=== PATIENT | female | born 1960 | race Two or more races ===

== ENCOUNTER 2019-08-31 14:41 | Emergency (ER) | payer SELFPAY ==
[~2019-08-31] VITALS: Ht 147.3 cm; Wt 70.0 kg
--- NOTE | 2019-08-31 15:12 | PHYS DOC ---
General Adult EDM: Chief Complaint: DIZZY/LIGHT HEADED HPI: HPI: 59-year-old female presents with dizziness. Patient states that she has had dizziness for several weeks or even months. It is intermittent and worse when she lies down. She gets the feeling of rotation when she does this. She also has these episodes sometimes when she goes from sitting to standing. They can last for a couple of minutes. She has noticed that it is most frequent when she uses her reading glasses. They are a generic prescription level that she bought [id number]. She has not been evaluated by an professional poker player. She has been having more trouble since starting this new job this week. She has not been wearing her reading glasses today and has not had any episodes. She denies nausea, vomiting, fever, chills. She has no other complaints at this time. Review of Systems: Review of Systems: Constitutional: Denies fever or chills Eyes: Denies change in visual acuity HENT: Denies nasal congestion or sore throat Respiratory: Denies cough or shortness of breath Cardiovascular: Denies chest pain or edema GI: Denies abdominal pain, nausea, vomiting, bloody stools or diarrhea : Denies dysuria Musculoskeletal: Denies back pain or joint pain Integument: Denies rash Neurologic: Dizziness. Denies headache, focal weakness or sensory changes Endocrine: Denies polyuria or polydipsia Lymphatic: Denies swollen glands Psychiatric: Denies depression or anxiety Heart Score: Risk Factors: Risk Factors: DM, Current or recent (<one month) smoker, HTN, HLP, family history of CAD, obesity. Risk Scores: Score 0 - 3: 2.5% MACE over next 6 weeks - Discharge Home Score 4 - 6: 20.3% MACE over next 6 weeks - Admit for Clinical Observation Score 7 - 10: 72.7% MACE over next 6 weeks - Early Invasive Strategies Physical Exam: PE: Constitutional: Well developed, well nourished, no acute distress, non-toxic appearance. [] HENT: Normocephalic, atraumatic, bilateral external ears normal, oropharynx moist, no oral exudates, nose normal. [] Eyes: PERRLA, EOMI, conjunctiva normal, no discharge. [] Neck: Normal range of motion, no tenderness, supple, no stridor. [] Cardiovascular:Heart rate regular rhythm, no murmur [] Lungs & Thorax: Bilateral breath sounds clear to auscultation [] Abdomen: Bowel sounds normal, soft, no tenderness, no masses, no pulsatile masses. [] Skin: Warm, dry, no erythema, no rash. [] Back: No tenderness, no CVA tenderness. [] Extremities: No tenderness, no cyanosis, no clubbing, ROM intact, no edema. [] Neurologic: Alert and oriented X 3, normal motor function, normal sensory function, no focal deficits noted. [] Psychologic: Affect normal, judgement normal, mood normal. [] EKG: EKG: Sinus rhythm, rate 69, leftward axis, no ST elevations or depressions. [] Radiology/Procedures: Radiology/Procedures: [] Impressions: CT HEAD WO CONTRAST History:Dizziness Comparison: None. Technique: Noncontrast CT imaging was performed of the head. Exposure: One or more of the following individualized dose reduction techniques were utilized for this examination: 1. Automated exposure control 2. Adjustment of the mA and/or kV according to patient size 3. Use of iterative reconstruction technique. Findings: No acute extra-axial or parenchymal hemorrhage is identified. There is no significant intra-axial mass effect, midline shift, or extra-axial fluid collection. The santo-white differentiation of the major vascular territories is preserved. The ventricles, sulci, and cisterns are within normal limits in size and configuration. The mastoid air cells and the visualized paranasal sinuses are aerated. No acute calvarial abnormality is identified. There may be degree of mild cerebellar tonsillar ectopia. Impression: 1. No acute intracranial abnormality identified. There may be degree of mild cerebellar tonsillar ectopia. Electronically signed by: Miguel Ángel Castellon MD (08/31/2019 3:33 PM) [id number] DICTATED AND SIGNED BY: MIGUEL ÁNGEL CASTELLON MD DATE: 08/31/19 1533 CHEST AP ONLY History: Dizziness Comparison: None. Findings: Single view of the chest is submitted. There is no infiltrate, pneumothorax, or effusion. The pericardial cardiac silhouette is within normal limits in size. There is mild left suprahilar fullness. Impression: 1. There is no infiltrate. 2. There is mild left suprahilar fullness, no previous exams to evaluate for change. This may be due to vasculature, difficult to exclude underlying nodule for which either two-view chest follow-up in 3 months or nonemergent chest CT evaluation should be considered. Electronically signed by: Miguel Ángel Castellon MD (08/31/2019 3:55 PM) [id number] DICTATED AND SIGNED BY: MIGUEL ÁNGEL CASTELLON MD DATE: 08/31/19 1555 CC: MAXINE HAGER DO; PCP,NO ~ Course & Med Decision Making: Course & Med Decision Making Pertinent Labs and Imaging studies reviewed. (See chart for details) The patient's head CT and chest x-ray are negative for acute findings, however there are incidental findings. See official report for more details. Labs are essentially unremarkable. It seems most likely the patient's symptoms are coming from her use of her glasses. She may also have some mild positional vertigo in addition to this or exacerbated by her glasses. I have advised that she follow-up with an nitroglycerin nitrator operator batch and her primary care physician. She is stable for discharge at this time. I will give her a trial prescription of meclizine. [] Dragon Disclaimer: Dragon Disclaimer: This electronic medical record was generated, in whole or in part, using a voice recognition dictation system. Departure Departure: Impression: Primary Impression: Dizziness Disposition: 01 HOME/RESIDENCE PRIOR TO ADM Condition: STABLE Referrals: PCP,NO (PCP) Patient Instructions: Dizziness, [id number] Scripts Meclizine Hcl (MECLIZINE HCL) 12.5 Mg Tablet 1 TAB PO TID PRN for DIZZINESS, #30 TAB Prov: MAXINE HAGER DO 08/31/19 Justification of Admission: Justification of Admission: Justification of Admission Dx: N/A MAXINE HAGER DO Aug 31, 2019 15:11
--- NOTE | 2019-08-31 15:36 | RAD ---
CT HEAD WO CONTRAST History:Dizziness Comparison: None. Technique: Noncontrast CT imaging was performed of the head. Exposure: One or more of the following individualized dose reduction techniques were utilized for this examination: 1. Automated exposure control 2. Adjustment of the mA and/or kV according to patient size 3. Use of iterative reconstruction technique. Findings: No acute extra-axial or parenchymal hemorrhage is identified. There is no significant intra-axial mass effect, midline shift, or extra-axial fluid collection. The santo-white differentiation of the major vascular territories is preserved. The ventricles, sulci, and cisterns are within normal limits in size and configuration. The mastoid air cells and the visualized paranasal sinuses are aerated. No acute calvarial abnormality is identified. There may be degree of mild cerebellar tonsillar ectopia. Impression: 1. No acute intracranial abnormality identified. There may be degree of mild cerebellar tonsillar ectopia. Electronically signed by: Harmeet Covarrubias MD (08/31/2019 3:33 PM) [id number]
--- NOTE | 2019-08-31 15:58 | RAD ---
CHEST AP ONLY History: Dizziness Comparison: None. Findings: Single view of the chest is submitted. There is no infiltrate, pneumothorax, or effusion. The pericardial cardiac silhouette is within normal limits in size. There is mild left suprahilar fullness. Impression: 1. There is no infiltrate. 2. There is mild left suprahilar fullness, no previous exams to evaluate for change. This may be due to vasculature, difficult to exclude underlying nodule for which either two-view chest follow-up in 3 months or nonemergent chest CT evaluation should be considered. Electronically signed by: Harmeet Covarrubias MD (08/31/2019 3:55 PM) [id number]
[2019-08-31 15:59] LABS: BASO % 1 % (0-3); EOS # 0.1 x10^3/uL (0.0-0.7); EOS % 2 % (0-3); HEMATOCRIT 50.9 % (36.0-47.0); HEMOGLOBIN 16.6 g/dL (12.0-15.5); LYMPH # 1.6 x10^3/uL (1.0-4.8); LYMPH % 26 % (24-48); MEAN CORPUSCULAR HEMOGLOBIN 31 pg (25-35); MEAN CORPUSCULAR HGB CONC 33 g/dL (31-37); MEAN CORPUSCULAR VOLUME 95 fL (79-100); MONO # 0.5 x10^3/uL (0.0-1.1); MONO % 8 % (0-9); NEUT % 64 % (31-73); PLATELET COUNT 184 x10^3/uL (140-400); RED BLOOD COUNT 5.36 x10^6/uL (3.50-5.40); RED CELL DISTRIBUTION WIDTH 14.1 % (11.5-14.5); WHITE BLOOD COUNT 6.3 x10^3/uL (4.0-11.0)
[2019-08-31 16:06] LABS: CALCIUM 8.7 mg/dL (8.5-10.1); GFR 56.9; POTASSIUM 4.4 mmol/L (3.5-5.1)
[2019-08-31 16:12] LABS: ALBUMIN 3.2 g/dL (3.4-5.0); ALBUMIN/GLOBULIN RATIO 1.2 (1.0-1.7); TOTAL BILIRUBIN 0.8 mg/dL (0.2-1.0); TOTAL PROTEIN 5.9 g/dL (6.4-8.2)
[2019-08-31] MEDS ORDERED: IV NORMAL SALINE 1,000ML 1,000 ML IV ONE (16:30)
[2019-08-31] MEDS ORDERED: MECL12.573 PO (16:39)
[2019-08-31 16:51] VITALS: BP 142/90
--- NOTE | 2019-08-31 19:56 | EKG ---
[address] [id number] Test Date: 2019-08-31 Test Time: 15:12:02 Pat Name: MEGAN COLE Department: Room: Gender: F Lead Javascript Engineer: SONIA : 1960 Requested By: MAXINE HAGER Order Number: [id number] Reading MD: Measurements Intervals [place] Rate: 69 P: 21 CT: 150 QRS: -2 QRSD: 74 T: 37 QT: 380 QTc: 409 Interpretive Statements SINUS RHYTHM LEFTWARD AXIS OTHERWISE NORMAL ECG RI6.02 No previous ECG available for comparison
== END 2019-08-31 17:34 | disposition home or self-care (01) ==
LOC: ER 14:41
DX: R42 Dizziness and giddiness (principal)
CPT/HCPCS: 36415; 70450; 71045; 80053; 84484; 85025; 93005; 96360; 99285; J7030